=== PATIENT | male | born 1950 | race Hispanic/Latino ===

== ENCOUNTER 2017-10-30 11:49 | Emergency (ER) | payer OTHER ==
[2017-10-30 12:50] LABS: #Basophils 0.1 thou/uL (0.0-0.2); #Eosinphils 0.1 thou/uL (0.0-0.7); #Monocytes 0.4 thou/uL (0.11-0.59); #Neutrophils 4.2 thou/uL (1.40-6.50); %Eosinophils 1.3 % (0.0-10.0); %Lymphocytes 29.4 % (21.0-51.0); %Neutrophils 62.2 % (42.0-75.0); Hemoglobin 13.9 g/dL (14.0-18.0); Mean Corpuscular HGB CONC 33.5 g/dL (32.0-36.0); Mean Corpuscular Hemoglobin 30.4 pg (27.0-31.0); Mean Corpuscular Volume 90.7 fL (78.0-98.0); Mean Platelet Volume 5.7 fL (7.4-10.4); Platelet Count 244 thou/uL (130-400); RBC Distribution Width 11.1 % (11.5-14.5); Red Blood Cell (RBC) Count 4.57 mill/uL (4.70-6.10); White Blood Cell (WBC) Count 6.8 thou/uL (4.8-10.8)
--- NOTE | 2017-10-30 12:52 | CT ---
CT CERVICAL SPINE: Multiple axial tomograms are obtained with multiplanar reconstruction to the cervical spine. INDICATION: Trauma. Fall with injury to neck. Cervical vertebrae maintain height and alignment. Mild degenerative changes are noted. There is pro minent fact hypertrophy on the left at C2-3. No acute fracture identified. IMPRESSION: 1. There are mild degenerative changes most prominent at C2-3. 2. No acute fracture identified. POS: [facility]
[2017-10-30 12:54] LABS: PTT 26.1 SEC (22.9-36.1); Prothrombin Time 12.8 SEC (12.0-14.7)
--- NOTE | 2017-10-30 12:56 | CT ---
CT HEAD WITHOUT CONTRAST: HISTORY: Trauma. Fall with injury to head. TECHNIQUE: Multiple axial tomograms obtained through the head without contrast. Multiplanar reconstruction obta ined. FINDINGS: The ventricles have normal size and position. There is no evidence of intracranial hemorrhage. No m ass or edema. There are scattered parenchymal calcifications seen in both cerebral hemispheres. Considerations inc lude an old cysticercosis infection. The calvarium appears intact. The sinuses and mastoids are aerated. IMPRESSION: No evidence of acute intracranial process. POS: [facility]
[2017-10-30] MEDS ORDERED: HYDROcodone/Acetaminophen 10/325 mg Tablet ONE (12:57)
[2017-10-30] MEDS ORDERED: Naproxen 500 MG TAB ONE (12:57)
[2017-10-30 13:04] LABS: ALT (SGPT) 45 U/L (8-55); AST (SGOT) 59 U/L (5-34); Albumin 4.7 g/dL (3.4-4.8); Alkaline Phosphatase 65 U/L (40-150); Anion Gap 18 mmol/L (10-20); BUN (Urea Nitrogen) 15 mg/dL (8.4-25.7); Bilirubin, Total 0.4 mg/dL (0.2-1.2); Calc. Creatinine Clearance 0 mL/min (70-130); Calcium 9.6 mg/dL (7.8-10.44); Carbon Dioxide 21 mmol/L (23-31); Chloride 103 mmol/L (98-107); Estimated GFR-MDRD Greater than 90; Globulin 3.5 g/dL (2.4-3.5); Glucose 170 mg/dL (80-115); Potassium 4.2 mmol/L (3.5-5.1); Protein, Total 8.2 g/dL (5.8-8.1); Sodium 138 mmol/L (136-145)
== END 2017-10-30 13:43 | disposition home or self-care (01) ==
LOC: MADERS 11:49
DX: S00.03XA Contusion of scalp, initial encounter (principal); E11.9 Type 2 diabetes mellitus without complications; M54.2 Cervicalgia; I10 Essential (primary) hypertension; W17.89XA Other fall from one level to another, initial encounter
CPT/HCPCS: 36415; 70450; 72125; 80053; 85025; 85610; 85730